=== PATIENT | female | born 1950 | race Caucasian/White ===

== ENCOUNTER 2021-12-06 09:33 | Outpatient (CLI) | payer MEDICARE, BC, SELFPAY | END 2021-12-06 09:34 | disposition home or self-care (01) | LOC: WOUND 09:33 | PROVIDERS: PCP Family Medicine; Visit Provider Nurse Practitioner Family | DX: I87.311 Chronic venous hypertension (idiopathic) with ulcer of right lower extremity (principal); L97.312 Non-pressure chronic ulcer of right ankle with fat layer exposed; Q82.0 Hereditary lymphedema | CPT/HCPCS: 99212 ==

== ENCOUNTER 2023-06-08 12:45 | Outpatient (CLI) | payer MEDICARE, BC, SELFPAY | END 2023-06-08 12:46 | disposition home or self-care (01) | PROVIDERS: PCP Family Medicine; Visit Provider Nurse Practitioner Family | DX: I87.311 Chronic venous hypertension (idiopathic) with ulcer of right lower extremity (principal); I87.2 Venous insufficiency (chronic) (peripheral); L97.312 Non-pressure chronic ulcer of right ankle with fat layer exposed; L97.812 Non-pressure chronic ulcer of other part of right lower leg with fat layer exposed; I89.0 Lymphedema, not elsewhere classified | CPT/HCPCS: 87070; 97597; G0463 ==

== ENCOUNTER 2023-06-15 10:25 | Outpatient (CLI) | payer MEDICARE, BC, SELFPAY | END 2023-06-15 10:26 | disposition home or self-care (01) | LOC: WOUND 10:26 | PROVIDERS: PCP Family Medicine; Visit Provider Nurse Practitioner Family | DX: I87.311 Chronic venous hypertension (idiopathic) with ulcer of right lower extremity (principal); I87.2 Venous insufficiency (chronic) (peripheral); L97.312 Non-pressure chronic ulcer of right ankle with fat layer exposed; L97.812 Non-pressure chronic ulcer of other part of right lower leg with fat layer exposed; I89.0 Lymphedema, not elsewhere classified | CPT/HCPCS: 97597; 97602 ==

== ENCOUNTER 2023-06-20 10:54 | Outpatient (CLI) | payer MEDICARE, BC, SELFPAY | END 2023-06-20 10:55 | disposition home or self-care (01) | LOC: WOUND 10:54 | PROVIDERS: PCP Family Medicine; Visit Provider Nurse Practitioner Family | DX: I87.311 Chronic venous hypertension (idiopathic) with ulcer of right lower extremity (principal); I87.2 Venous insufficiency (chronic) (peripheral); L97.312 Non-pressure chronic ulcer of right ankle with fat layer exposed; L97.318 Non-pressure chronic ulcer of right ankle with other specified severity; I89.0 Lymphedema, not elsewhere classified | CPT/HCPCS: 97597; 97602 ==

== ENCOUNTER 2023-06-27 11:40 | Outpatient (CLI) | payer MEDICARE, BC, SELFPAY | END 2023-06-27 11:41 | disposition home or self-care (01) | LOC: WOUND 11:40 | PROVIDERS: PCP Family Medicine; Visit Provider Physician Assistant | DX: I87.311 Chronic venous hypertension (idiopathic) with ulcer of right lower extremity (principal); I87.2 Venous insufficiency (chronic) (peripheral); L97.312 Non-pressure chronic ulcer of right ankle with fat layer exposed; I89.0 Lymphedema, not elsewhere classified | CPT/HCPCS: 97597 ==

== ENCOUNTER 2023-07-03 08:52 | Outpatient (CLI) | payer MEDICARE, BC, SELFPAY | END 2023-07-03 08:53 | disposition home or self-care (01) | LOC: WOUND 08:52 | PROVIDERS: PCP Family Medicine; Visit Provider Nurse Practitioner Family | DX: I87.311 Chronic venous hypertension (idiopathic) with ulcer of right lower extremity (principal); I87.2 Venous insufficiency (chronic) (peripheral); L97.312 Non-pressure chronic ulcer of right ankle with fat layer exposed; L97.318 Non-pressure chronic ulcer of right ankle with other specified severity; I89.0 Lymphedema, not elsewhere classified | CPT/HCPCS: 97597; 97602 ==

== ENCOUNTER 2023-07-10 09:02 | Outpatient (CLI) | payer MEDICARE, BC, SELFPAY | END 2023-07-10 09:03 | disposition home or self-care (01) | LOC: WOUND 09:02 | PROVIDERS: PCP Family Medicine; Visit Provider Physician Assistant | DX: I87.311 Chronic venous hypertension (idiopathic) with ulcer of right lower extremity (principal); I87.2 Venous insufficiency (chronic) (peripheral); L97.312 Non-pressure chronic ulcer of right ankle with fat layer exposed; I89.0 Lymphedema, not elsewhere classified | CPT/HCPCS: 97597; G0463 ==

== ENCOUNTER 2023-07-24 09:04 | Outpatient (CLI) | payer MEDICARE, BC, SELFPAY | END 2023-07-24 09:05 | disposition home or self-care (01) | LOC: WOUND 09:04 | PROVIDERS: PCP Family Medicine; Visit Provider Nurse Practitioner Family | DX: I87.311 Chronic venous hypertension (idiopathic) with ulcer of right lower extremity (principal); L97.312 Non-pressure chronic ulcer of right ankle with fat layer exposed; I87.2 Venous insufficiency (chronic) (peripheral) | CPT/HCPCS: 97597 ==

== ENCOUNTER 2023-07-31 09:18 | Outpatient (CLI) | payer MEDICARE, BC, SELFPAY | END 2023-07-31 09:19 | disposition home or self-care (01) | LOC: WOUND 09:18 | PROVIDERS: PCP Family Medicine; Visit Provider Nurse Practitioner Family | DX: I87.311 Chronic venous hypertension (idiopathic) with ulcer of right lower extremity (principal); L97.312 Non-pressure chronic ulcer of right ankle with fat layer exposed; I89.0 Lymphedema, not elsewhere classified | CPT/HCPCS: 97597 ==

== ENCOUNTER 2023-08-21 08:51 | Outpatient (CLI) | payer MEDICARE, BC, SELFPAY | END 2023-08-21 08:52 | disposition home or self-care (01) | LOC: WOUND 08:51 | PROVIDERS: PCP Family Medicine; Visit Provider Physician Assistant | DX: I87.311 Chronic venous hypertension (idiopathic) with ulcer of right lower extremity (principal); I87.2 Venous insufficiency (chronic) (peripheral); L97.312 Non-pressure chronic ulcer of right ankle with fat layer exposed; I89.0 Lymphedema, not elsewhere classified | CPT/HCPCS: 97597 ==

== ENCOUNTER 2023-08-28 08:54 | Outpatient (CLI) | payer MEDICARE, BC, SELFPAY | END 2023-08-28 08:55 | disposition home or self-care (01) | LOC: WOUND 08:54 | PROVIDERS: PCP Family Medicine; Visit Provider Nurse Practitioner Family | DX: I87.311 Chronic venous hypertension (idiopathic) with ulcer of right lower extremity (principal); I87.2 Venous insufficiency (chronic) (peripheral); L97.312 Non-pressure chronic ulcer of right ankle with fat layer exposed; I89.0 Lymphedema, not elsewhere classified | CPT/HCPCS: 97602; G0463 ==

== ENCOUNTER 2023-09-04 08:50 | Outpatient (CLI) | payer MEDICARE, BC, SELFPAY | END 2023-09-04 08:51 | disposition home or self-care (01) | LOC: WOUND 08:50 | PROVIDERS: PCP Family Medicine; Visit Provider Nurse Practitioner Family | DX: I87.311 Chronic venous hypertension (idiopathic) with ulcer of right lower extremity (principal); I87.2 Venous insufficiency (chronic) (peripheral); L97.312 Non-pressure chronic ulcer of right ankle with fat layer exposed | CPT/HCPCS: 97602; G0463 ==

== ENCOUNTER 2023-09-18 08:53 | Outpatient (CLI) | payer MEDICARE, BC, SELFPAY | END 2023-09-18 08:54 | disposition home or self-care (01) | LOC: WOUND 08:53 | PROVIDERS: PCP Family Medicine; Visit Provider Nurse Practitioner Family | DX: I87.311 Chronic venous hypertension (idiopathic) with ulcer of right lower extremity (principal); I87.2 Venous insufficiency (chronic) (peripheral); L97.318 Non-pressure chronic ulcer of right ankle with other specified severity; I89.0 Lymphedema, not elsewhere classified | CPT/HCPCS: G0463 ==